=== PATIENT | male | born 1995 | race Caucasian/White ===

== ENCOUNTER → 2017-04-16 | Emergency (ER) | payer OTHER ==
[2017-04-16 17:23] VITALS: BMI 19.5
--- NOTE | 2017-04-16 17:32 | PDOC ---
History of Present Illness - General Chief Complaint: Pain Stated Complaint: testicular pain Time Seen by Provider: 04/16/17 17:30 - History of Present Illness Initial Comments: 04/16/17 18:35 Patient is a 21 year old male with no significant past medical history who presents with right testicular pain and swelling. The patient reports 2 weeks of mild intermittent lower right quadrant abdominal pain that resolved 2 days ago with his associated right testicular swelling. He reports 2 days of testicular swelling and pain, however states that he has felt a lump on his right testicle for several months. He is sexually active with one monogamous partner and denies any history of STIs. He denies fevers, chills, SOB, chest pain, abdominal pain, discharge or changes with urination. Past History - Past Medical History Allergies/Adverse Reactions: Allergies Allergy/AdvReac Type Severity Reaction Status Date / Time No Known Allergies Allergy Verified 04/16/17 17:19 Home Medications: Ambulatory Orders NK [No Known Home Medication] 04/16/17 Other medical history: denies. - Psycho/Social/Smoking Cessation Hx Suicidal Ideation: No Smoking History: Current some day smoker Have you smoked in the past 12 months: No Information on smoking cessation initiated: No Review of Systems - Review of Systems Constitutional: No: Chills, Fever Respiratory: No: Cough, Shortness of Breath Cardiac (ROS): No: Chest Pain, Palpitations, Chest Tightness ABD/GI: No: Constipated, Diarrhea, Nausea, Vomiting : Yes: Testicular Mass, Testicular Pain. No: Burning, Dysuria, Hematuria, Pain Integumentary: No: Rash Neurological: No: Headache, Numbness, Tingling, Weakness *Physical Exam - Vital Signs Last Vital Signs Temp Pulse Resp BP Pulse Ox 98 F 70 19 122/67 100 04/16/17 17:19 04/16/17 17:19 04/16/17 17:19 04/16/17 17:19 04/16/17 17:19 - Physical Exam Comments: 04/16/17 18:53 General Appearance: Nourished. No Apparent Distress HEENT: No Pharyngeal Erythema, Tonsillar Exudate, Tonsillar Erythema Respiratory/Chest: Lungs Clear, Normal Breath Sounds. No Crackles, Rales, Rhonchi, Wheezing Cardiovascular: Regular Rhythm, Regular Rate. No Murmur, Gallop/S3, Gallop/S4 Gastrointestinal/Abdominal: Normal Bowel Sounds, Soft. No Guarding, Rebound, Tenderness Male Genitalia: Mild right testicular tenderness, right testicular mass. No discharge, epididymus tender, inguinal hernia, hernia Extremity: Normal Capillary Refill Integumentary: Normal Color, Dry, Warm Neurologic: Fully Oriented, Alert, Normal Mood/Affect, Normal Response Medical Decision Making - Medical Decision Making 04/16/17 18:56 Patient is a 21 year old male who presents with testicular swelling and pain. Differential includes but is not limited to: Neoplasm, torsion, epididimitis, hernia, veracocele. Given his physical exam, the lesion on his right testicle appears to be neoplastic in nature. We will obtain a scrotal ultrasound to evaluate as well as a UA. 04/16/17 20:10 Ultrasound was read as negative despite physical exam evidence of a mass on the right testicle. We discussed the case with radiology who reports that they do not see any mass. We consulted Dr. Ortiz with Urology who agreed to see the patient in 2 days in clinic for evaluation. We discussed the results and plan with the patient and emphasized the importance of following up with Dr. Ortiz. He is agreeable with the plan. *DC/Admit/Observation/Transfer Diagnosis at time of Disposition: Testicular mass - Discharge Dispostion Disposition: HOME Condition at time of disposition: Good Admit: No - Referrals Referrals: Ramesh Ortiz MD [Staff Physician] - - Patient Instructions Printed Discharge Instructions: How to Perform a Testicular Self-exam Additional Instructions: Please return to the ER if you experience concerning or worsening symptoms. It is important to follow up with our urologist Dr. Ortiz on Wednesday to be re- evaluated for your testicular mass. The number has been provided. Please call his clinic Wednesday morning to schedule an appointment. Dr. Ortiz is aware of your case. - Attestations Physician Attestion: 04/16/17 20:33 I, Dr. Power Duckworth, attest that this document has been prepared under my direction and personally reviewed by me in its entirety. I further attest, that it accurately reflects all work, treatment, procedures and medical decision -making performed by me.
--- NOTE | 2017-04-16 18:15 | PDOC ---
Attending Attestation - Resident Resident Name: DonitaPower - ED Attending Attestation I have performed the following: I have examined & evaluated the patient, The case was reviewed & discussed with the resident, I agree w/resident's findings & plan, Exceptions are as noted - HPI HPI: 04/16/17 18:15 21y M no pmhx presents with R testciular mass, pt noticed a mass on his testicle 2 days ago. No associated penile discharge, dysuria, fever/chills. Pt notes that it is alittle uncomfortable when he sits. GENERAL: The patient is awake, alert, and fully oriented, Nontoxic - in no acute distress. HEAD: Normocephalic, atraumatic. ABDOMEN: Soft, nontender, normoactive bowel sounds. No guarding, no rebound. No CVA tenderness : +[id number] mass on lower pole of R testicle without significant tenderness, no d/c, nontender, no erhythema EXTREMITIES: Normal range of motion, no edema. No clubbing or cyanosis. No cords, erythema, or tenderness. NEUROLOGICAL: No facial assymetry, Normal speech, SKIN: Warm, Dry, normal turgor, suspect possible germ cell tumor incosnsistnt w/ torsion/epididmidis/orchitis will obtain UA 04/16/17 20:33 n osignificant abnormalities noted on US, ohwever du to palable mass, will have pt fu with urology on wednesday return precautions were discussed - Physicial Exam PE: 04/17/17 02:25 see above - Medical Decision Making 04/17/17 02:25 see above
[2017-04-16 18:46] LABS: URINE APPEARANCE CLEAR; URINE BILIRUBIN NEGATIVE (NEGATIVE); URINE BLOOD NEGATIVE (NEGATIVE); URINE COLOR STRAW; URINE GLUCOSE (UA) NEGATIVE (NEGATIVE); URINE KETONE NEGATIVE (NEGATIVE); URINE LEUK ESTERASE TRACE (NEGATIVE); URINE NITRITE NEGATIVE (NEGATIVE); URINE PROTEIN NEGATIVE (NEGATIVE); URINE UROBILINOGEN NEGATIVE mg/dL (0.2-1.0)
[2017-04-16 18:51] LABS: URINE RBC 1 /hpf (0-3); URINE WBC 4 /hpf (3-5)
[2017-04-16 20:49] VITALS: BP 110/67; PULSE 67; TEMP 98.3
== END | disposition home or self-care (01) ==
LOC: JER 17:14
DX: N50.89 Other specified disorders of the male genital organs (principal)
CPT/HCPCS: 76870-TC; 81003; 81015; 99282-25